=== PATIENT | female | born 1980 | race Two or more races ===

== ENCOUNTER → 2018-05-25 | Day surgery (SDC) | payer BC ==
[2018-05-22 14:48] LABS: Urine Bacteria NONE SEEN /hpf (None Seen); Urine Blood Negative /uL (Negative); Urine Specific Gravity 1.006 (1.001-1.035); Urine WBC 1 /hpf (0 - 5)
[2018-05-22 14:49] LABS: Basophils # (auto) 0 uL; Basophils % (auto) 0.2 % (0.0-2.0); Eosinophils # (auto) 0.1 uL; Hemoglobin 11.6 g/dL (12.2-16.2); Lymphocytes # (auto) 2.2 uL; Monocytes # (auto) 0.6 uL; Monocytes % (auto) 6.8 % (0.0-12.0)
[2018-05-22 14:51] LABS: Eosinophils % (auto) 1.2 % (0.0-7.0); Hematocrit 36.6 % (36.0-46.0); Lymphocytes % (auto) 25.4 % (10.0-50.0); Mean Corpuscular Hemoglobin 23.5 pg (28.0-32.0); Mean Corpuscular Hgb Conc. 31.8 g/dL (32.0-36.0); Mean Corpuscular Volume 73.8 fL (80.0-100.0); Neutrophils # (auto) 5.8 uL; Neutrophils % (auto) 66.4 % (37.0-80.0); Platelet Count (auto) 307 10^3/uL (140-450); Red Blood Cells 4.96 10^6/uL (4.0-5.20); Red Cell Distribution Width 18.9 % (11.8-14.3); White Blood Cell 8.7 10^3/uL (4.4-10.8)
[2018-05-22 15:05] LABS: INR 0.97 (0.9-1.15); Partial Thromboplastin Time 26.8 sec (23.78-33.04); Prothrombin Time 10.4 sec (9.27-12.13)
[~2018-05-25] VITALS: Ht 170.2 cm; Wt 147.4 kg
[~2018-05-25] MED LIST: ALBUAER3 IN; CONJ ESTROGENS 0.625MG/GM VAG CRM 30GM PV ONE; FERRIC SUBSULFATE TOPICAL SOLN 30 ML BTL ONE; KETOROLAC TROMETH 30 MG/ML 1ML VIAL IV ONE; LACTATED RINGER'S 1,000 ML IV SCH; METHYLENE BLUE 0.5% 5MG/ML 10ml AMP IV ONE; METOCLOPRAMIDE HCL 5MG/ml INJ 2ml VIAL IV ONE; MIDAZOLAM HCL 1MG/1ML-2 ML VIAL ONE; MONT10TA23 PO; ONDANSETRON HCL 4 MG/2 ML VIAL IV PRN; ONDANSETRON HCL 4 MG/2 ML VIAL ONE; PROPOFOL 10 MG/ML 20 ML IV ONE; ROCURONIUM 10MG/ML 10ML VIAL IV ONE; SODIUM CHLORIDE LOCK 10 ML ONE; SUCCINYLCHOLINE CHLORIDE 20 MG/ML 10ML VIAL IV ONE; ceFAZolin 1GM/50ML 50 ML IV ONE; fentaNYL CITRATE 100 MCG/2 ML VL IV ONE; fentaNYL CITRATE 100 MCG/2 ML VL ONE
[2018-05-25 09:40] VITALS: BP 118/74
== END | disposition home or self-care (01) ==
LOC: SUR 06:00
PROVIDERS: ATTEND Specialist
DX: N84.1 Polyp of cervix uteri (principal); E66.01 Morbid (severe) obesity due to excess calories; N83.209 Unspecified ovarian cyst, unspecified side; J45.909 Unspecified asthma, uncomplicated; Z68.43 Body mass index [BMI] 50.0-59.9, adult; Z90.49 Acquired absence of other specified parts of digestive tract; Z98.84 Bariatric surgery status
CPT/HCPCS: 36415; 58558; 81001; 84702; 85025; 85610; 85730; 86850; 86900; 86901; J0330; J0690; J2250; J2405; J2704; J3010; Q9968